=== PATIENT | male | born 1950 | race Two or more races ===

== ENCOUNTER 2022-10-17 11:03 | Emergency (ER) | payer MEDICARE, BC ==
[~2022-10-17] VITALS: Ht 182.9 cm; Wt 100.0 kg
[2022-10-17] MEDS ORDERED: TETANUS-DIPTH-ACEL PERTUSSIS 0.5ML SYR Tdap IM ONE (11:45)
[2022-10-17 11:50] VITALS: BP 148/71
== END 2022-10-17 14:58 | disposition home or self-care (01) ==
LOC: ER 11:03
DX: S90.31XA Contusion of right foot, initial encounter (principal); E11.9 Type 2 diabetes mellitus without complications; V87.8XXA Person injured in other specified noncollision transport accidents involving motor vehicle (traffic), initial encounter; Y93.89 Activity, other specified; Y92.89 Other specified places as the place of occurrence of the external cause; Y99.8 Other external cause status
CPT/HCPCS: 73610; 73630; 90471; 90715